=== PATIENT | male | born 1955 | race Caucasian/White ===

== ENCOUNTER 2017-10-23 08:54 | Emergency (ER) | payer SELFPAY ==
[~2017-10-23] VITALS: Ht 152.4 cm; Wt 59.1 kg
[2017-10-23 08:56] VITALS: BP 128/79
== END 2017-10-23 10:49 | disposition home or self-care (01) ==
LOC: ED 10:43
DX: R45.1 Restlessness and agitation (principal); J45.909 Unspecified asthma, uncomplicated; Z00.00 Encounter for general adult medical examination without abnormal findings; Z72.89 Other problems related to lifestyle; Z91.14 Patient's other noncompliance with medication regimen; Z60.9 Problem related to social environment, unspecified; Z59.0 Homelessness
CPT/HCPCS: 99283

== ENCOUNTER 2017-12-12 18:03 | Emergency (ER) | payer MEDICAID, MEDICARE, OTHER ==
[~2017-12-12] VITALS: Ht 152.4 cm; Wt 62.2 kg
[2017-12-12 18:08] VITALS: BP 131/74
[2017-12-12] MEDS ORDERED: ACETAMINOPHEN 325 MG TABLET ONE (18:56)
[2017-12-12] MEDS ORDERED: ACETAMINOPHEN 325 MG TABLET PO ONE (19:00)
[2017-12-12] MEDS ORDERED: ACETAMINOPHEN 500 MG TABLET PO ONE (19:00)
== END 2017-12-12 19:06 | disposition home or self-care (01) ==
LOC: ED 19:01
DX: M54.5 Low back pain (principal); G89.29 Other chronic pain; J45.909 Unspecified asthma, uncomplicated; Z72.9 Problem related to lifestyle, unspecified
CPT/HCPCS: 99283

== ENCOUNTER 2018-01-07 05:05 | Emergency (ER) | payer MEDICAID ==
[~2018-01-07] VITALS: Ht 157.5 cm; Wt 62.0 kg
[2018-01-07] MEDS ORDERED: KETOROLAC 30 MG/1 ML IM ONE (05:30)
[2018-01-07] MEDS ORDERED: KETOROLAC 30 MG/1 ML ONE (05:42)
[2018-01-07 08:00] VITALS: BP 125/70
== END 2018-01-07 08:16 | disposition home or self-care (01) ==
LOC: ED 05:49
DX: S30.0XXA Contusion of lower back and pelvis, initial encounter (principal); G89.29 Other chronic pain; M51.16 Intervertebral disc disorders with radiculopathy, lumbar region; J45.909 Unspecified asthma, uncomplicated; W22.8XXA Striking against or struck by other objects, initial encounter; Y93.89 Activity, other specified; Y92.89 Other specified places as the place of occurrence of the external cause; Y99.8 Other external cause status
CPT/HCPCS: 72110; 73502; 96372; 99284; J1885

== ENCOUNTER 2018-01-23 04:57 | Emergency (ER) | payer MEDICAID ==
[~2018-01-23] VITALS: Ht 170.2 cm; Wt 60.9 kg
[2018-01-23 05:00] VITALS: BP 117/73
[2018-01-23] MEDS ORDERED: METHOCARBAMOL 750 MG TABLET ONE (05:16)
[2018-01-23] MEDS ORDERED: KETOROLAC 30 MG/1 ML ONE (05:16)
[2018-01-23] MEDS ORDERED: KETOROLAC 30 MG/1 ML IM ONE (05:30)
[2018-01-23] MEDS ORDERED: METHOCARBAMOL 750 MG TABLET PO ONE (05:30)
== END 2018-01-23 05:26 | disposition home or self-care (01) ==
LOC: ED 05:20
DX: S39.012A Strain of muscle, fascia and tendon of lower back, initial encounter (principal); F17.200 Nicotine dependence, unspecified, uncomplicated; X58.XXXA Exposure to other specified factors, initial encounter; Y93.89 Activity, other specified; Y99.8 Other external cause status; Y92.89 Other specified places as the place of occurrence of the external cause
CPT/HCPCS: 96372; 99283; J1885

== ENCOUNTER 2018-02-25 22:53 | Emergency (ER) | payer MEDICAID ==
[~2018-02-25] VITALS: Ht 165.1 cm; Wt 63.1 kg
[2018-02-25 22:55] VITALS: BP 119/72
== END 2018-02-26 01:06 | disposition home or self-care (01) ==
LOC: ED 23:27
DX: S20.211A Contusion of right front wall of thorax, initial encounter (principal); J45.20 Mild intermittent asthma, uncomplicated; Z86.73 Personal history of transient ischemic attack (TIA), and cerebral infarction without residual deficits; X58.XXXA Exposure to other specified factors, initial encounter; Y93.89 Activity, other specified; Y99.8 Other external cause status; Y92.89 Other specified places as the place of occurrence of the external cause
CPT/HCPCS: 99284

== ENCOUNTER 2018-03-05 21:23 | Emergency (ER) | payer MEDICAID ==
[~2018-03-05] VITALS: Ht 162.6 cm; Wt 63.1 kg
[2018-03-05] MEDS ORDERED: IBUPROFEN 200 MG TABLET ONE (23:23)
[2018-03-05] MEDS ORDERED: IBUPROFEN 200 MG TABLET PO ONE (23:30)
[2018-03-06 02:03] VITALS: BP 100/52
== END 2018-03-06 02:05 | disposition home or self-care (01) ==
LOC: ED 03-06 01:59
DX: S16.1XXA Strain of muscle, fascia and tendon at neck level, initial encounter (principal); S39.012A Strain of muscle, fascia and tendon of lower back, initial encounter; J45.909 Unspecified asthma, uncomplicated; Z72.9 Problem related to lifestyle, unspecified; Z86.73 Personal history of transient ischemic attack (TIA), and cerebral infarction without residual deficits; Y04.8XXA Assault by other bodily force, initial encounter; Y93.89 Activity, other specified; Y99.8 Other external cause status; Y92.89 Other specified places as the place of occurrence of the external cause
CPT/HCPCS: 72020; 72050; 72072; 72110; 99284

== ENCOUNTER 2018-04-11 14:38 | Emergency (ER) | payer MEDICAID ==
[~2018-04-11] VITALS: Ht 170.2 cm; Wt 64.0 kg
[2018-04-11 15:04] VITALS: BP 118/69
== END 2018-04-11 16:23 | disposition home or self-care (01) ==
LOC: ED 15:07
DX: J45.30 Mild persistent asthma, uncomplicated (principal); F10.120 Alcohol abuse with intoxication, uncomplicated
CPT/HCPCS: 71046; 99284

== ENCOUNTER 2018-04-25 19:15 | Emergency (ER) | payer MEDICAID, MEDICARE, OTHER ==
[~2018-04-25] VITALS: Ht 167.6 cm; Wt 68.0 kg
[2018-04-25 19:18] VITALS: BP 125/71
[2018-04-25] MEDS ORDERED: PLEASE ENTER HEIGHT AND WEIGHT MC SCH (19:30)
[2018-04-25] MEDS ORDERED: PLEASE ENTER ALLERGIES MC SCH (19:30)
[2018-04-25] MEDS ORDERED: ACETAMINOPHEN 325 MG TABLET PO ONE (19:30)
== END 2018-04-25 20:29 | disposition home or self-care (01) ==
LOC: EDBD → MERGE 19:15 → ED 20:00
DX: S00.432A Contusion of left ear, initial encounter (principal); I25.2 Old myocardial infarction; X58.XXXA Exposure to other specified factors, initial encounter; Y93.89 Activity, other specified; Y92.59 Other trade areas as the place of occurrence of the external cause; Y99.8 Other external cause status
CPT/HCPCS: 70450; 99284

== ENCOUNTER 2018-04-25 19:23 | Emergency (ER) | payer MEDICAID, OTHER ==
[2018-04-25] MEDS ORDERED: ACETAMINOPHEN 325 MG TABLET ONE (19:49)
== END 2018-04-25 20:29 | disposition left against medical advice (07) ==
LOC: ED 20:00
DX: M25.562 Pain in left knee (principal); Z53.21 Procedure and treatment not carried out due to patient leaving prior to being seen by health care provider

== ENCOUNTER 2018-07-02 12:06 | Emergency (ER) | payer MEDICAID ==
[~2018-07-02] VITALS: Ht 162.6 cm; Wt 59.0 kg
[2018-07-02 12:39] LABS: BASOPHILS # (AUTO) 0.02 x10^3/uL (0-0.1); BASOPHILS % (AUTO) 0 % (0-1); EOSINOPHILS # (AUTO) 0.02 x10^3/uL (0-0.4); EOSINOPHILS % (AUTO) 0 % (1-7); LYMPHOCYTES # (AUTO) 0.84 x10^3/uL (1-3.4); LYMPHOCYTES % (AUTO) 7 % (22-44); MD NO; MEAN CORPUSCULAR HEMOGLOBIN 31.3 pg (27.5-34.5); MEAN CORPUSCULAR VOLUME 91.9 fL (81-97); MEAN PLATELET VOLUME 7.8 fL (7.4-10.4); MONOCYTES # (AUTO) 0.46 x10^3/uL (0.2-0.8); MONOCYTES % (AUTO) 4 % (2-9); NEUTROPHILS # (AUTO) 10.94 x10^3/uL (1.8-6.8); NEUTROPHILS % (AUTO) 89 % (42-75); PLATELET COUNT 250 x10^3/uL (130-400); RED BLOOD COUNT 3.72 x10^6/uL (4.38-5.82); RED CELL DISTRIBUTION WIDTH 14.5 % (9.4-14.8)
[2018-07-02 12:48] LABS: ANION GAP 9 mmol/L (5-15); CALCIUM 8.6 mg/dL (8.5-10.1); CHLORIDE 108 mmol/L (98-107)
[2018-07-02 12:50] LABS: ALANINE AMINOTRANSFERASE 47 U/L (12-78); ALKALINE PHOSPHATASE 73 U/L (45-117); BILIRUBIN,TOTAL 0.9 mg/dL (0.2-1.0); CREATININE 0.93 mg/dL (0.7-1.3)
[2018-07-02 13:42] VITALS: BP 107/60
--- NOTE | 2018-07-02 15:32 | NUR ---
PT AMBULATED TO BATHROOM WITHOUT ASSIST AND TOELRATED WELL. NO ACUTE S/ SOF DISTRESS. PT VERBALIZES UNDERSTANDING OF POC. TO BE DC
== END 2018-07-02 16:03 | disposition home or self-care (01) ==
LOC: ED 15:44
DX: F41.9 Anxiety disorder, unspecified (principal); F15.10 Other stimulant abuse, uncomplicated; I25.2 Old myocardial infarction; J45.909 Unspecified asthma, uncomplicated
CPT/HCPCS: 36415; 80053; 85025; 93005; 99284

== ENCOUNTER 2018-07-18 04:55 | Inpatient (IN) | payer MEDICAID, OTHER ==
[~2018-07-18] VITALS: Ht 167.6 cm; Wt 51.0 kg
[2018-07-18] MEDS ORDERED: ALBUTEROL/IPRATROPIUM 2.5MG/0.5MG, 3 ML ONE (05:16)
--- NOTE | 2018-07-18 05:20 | NUR ---
BIB [facility] FROM [facility] WITH C/O PRODUCTIVE COUGH X 3 DAYS, PER [facility] PT REFUSED ALL CARE, SPO2 86% R/A, AGREED TO WEAR 2L O2 PER N/C [id number]%, PER [facility] PT INITALLY AMBULATED TO AMBULANCE THEN STATED HE WAS UNABLE TO AMBULATE WHEN APPROACHING AMBULANCE. PROVIDED PT WITH GOWN, MONITORS APPLIED, SIDERAILS UP X2, CALL LIGHT WITHIN REACH.
--- NOTE | 2018-07-18 05:21 | NUR ---
RT AT BEDSIDE FOR T/X
[2018-07-18] MEDS ORDERED: ALBUTEROL/IPRATROPIUM 2.5MG/0.5MG, 3 ML NPPB ONE (05:30)
[2018-07-18] MEDS ORDERED: SODIUM CHLORIDE FLUSH 10ML SYR IVF ONE (05:30)
[2018-07-18] MEDS ORDERED: PIPERACILLIN/TAZO/PMX 3.375GM 50 ML IV ONE (06:00)
[2018-07-18 06:05] LABS: MEAN CORPUSCULAR HEMOGLOBIN 29.3 pg (27.5-34.5); MEAN CORPUSCULAR HGB CONC 32.3 g/dL (33.2-36.2); MEAN CORPUSCULAR VOLUME 90.9 fL (81-97); MEAN PLATELET VOLUME 7.5 fL (7.4-10.4); PLATELET COUNT 508 x10^3/uL (130-400); RED BLOOD COUNT 3.48 x10^6/uL (4.38-5.82); RED CELL DISTRIBUTION WIDTH 15.4 % (9.4-14.8)
[2018-07-18] MEDS ORDERED: PIPERACILLIN/TAZO/PMX 3.375GM 50 ML ONE (06:06)
--- NOTE | 2018-07-18 06:12 | NUR ---
IV SITE STARTED, BLOOD C/X X2 DRAWN, IV ABX INFUSING.
[2018-07-18 06:19] LABS: ALBUMIN 1.6 g/dL (3.4-5.0); ANION GAP 7 mmol/L (5-15); BASOPHILS # (AUTO) 0.01 x10^3/uL (0-0.1); BASOPHILS % (AUTO) 0 % (0-1); CALCIUM 9.2 mg/dL (8.5-10.1); CHLORIDE 100 mmol/L (98-107); CREATININE 0.87 mg/dL (0.7-1.3); EOSINOPHILS % (AUTO) 0 % (1-7); LYMPHOCYTES # (AUTO) 1.01 x10^3/uL (1-3.4); LYMPHOCYTES % (AUTO) 8 % (22-44); MD SCAN; MONOCYTES # (AUTO) 0.38 x10^3/uL (0.2-0.8); MONOCYTES % (AUTO) 3 % (2-9); NEUTROPHILS # (AUTO) 11.38 x10^3/uL (1.8-6.8); NEUTROPHILS % (AUTO) 89 % (42-75)
[2018-07-18 06:22] LABS: ALANINE AMINOTRANSFERASE 23 U/L (12-78); ALKALINE PHOSPHATASE 90 U/L (45-117); BILIRUBIN,TOTAL 0.7 mg/dL (0.2-1.0); TOTAL PROTEIN 6.4 g/dL (6.4-8.2); TROPONIN I < 0.015 ng/mL (0.000-0.045)
[2018-07-18 06:30] LABS: RAPID INFLUENZA A Negative (Negative); RAPID INFLUENZA B Negative (Negative)
[2018-07-18] MEDS ORDERED: SODIUM CHLORIDE 0.9% 1,000ML IVBOLUS ONE ×2 (06:30→08:00)
[2018-07-18] MEDS ORDERED: OMNIPAQUE 350 MG/ML, 75ML BOTTLE ONE (06:40)
--- NOTE | 2018-07-18 07:09 | NUR ---
REPORT GIVEN TO EVIN ALBERTO
--- NOTE | 2018-07-18 07:12 | NUR ---
Recieved bedside report from EVIN Mendez. All questions answered. Assuming care of pt. Pt resting on gurney connected to all monitors. All safety measures in place. Pt has unlabored respirations equal bilaterally. Skin is pink, warm, and dry. Waiting for CT to take imaging.
[2018-07-18] MEDS ORDERED: VANCOMYCIN PER PHARMACY MC PRN ×2 (07:30→09:00)
[2018-07-18] MEDS ORDERED: VANCOMYCIN 1,400 MG in SODIUM CHLORIDE 0.9% 250 ML IV ONE (07:30)
[2018-07-18] MEDS ORDERED: PHARMACOKINETIC CONSULTATION MC ONE ×2 (07:30→11:30)
--- NOTE | 2018-07-18 08:15 | NUR ---
patient o2 dropped to 83%, patient o2 increased to 4 L NC. Patient O2 increased to 93%. Patient has no distress but has periods of low saturation - potentially apneic periods
--- NOTE | 2018-07-18 08:22 | NUR ---
Float RN: Patient oxygen placed in mouth to help with drops in saturation. Primary RN notified
[2018-07-18] MEDS ORDERED: ONDANSETRON ODT 4 MG PO PRN (08:30)
--- NOTE | 2018-07-18 08:41 | NUR ---
Pt resting on gurney connected to all monitors. IV medications infusing per EMAR. NADN. No needs expressed at this time. All safety measures in place. Call light within reach. Pt aware of NPO status and states understanding.
[2018-07-18 09:44] LABS: HCT (SEDRATE) 31.7 % (39.2-51.8)
[2018-07-18] MEDS: PIPERACILLIN/TAZO/PMX 3.375GM 50 ML IV SCH ×3 (10:15→21:36)
[2018-07-18] MEDS ORDERED: FAMOTIDINE 20 MG TABLET ONE (10:16)
[2018-07-18] MEDS ORDERED: HEPARIN 5,000 UNITS/ML, 1ML ONE (10:16)
[2018-07-18] MEDS: HEPARIN 5,000 UNITS/ML, 1ML SQ SCH ×2 (10:19→18:10)
[2018-07-18] MEDS: FAMOTIDINE 20 MG TABLET PO SCH ×2 (10:19→21:36)
[2018-07-18] MEDS: SODIUM CHLORIDE 0.9% 1,000 ML IV SCH (10:20)
--- NOTE | 2018-07-18 10:30 | NUR ---
BS REPORT FROM DOLLY CLEARY, ASSUME CARE OF PT AT THIS TIME. FIRST CONTACT WITH PT, PT SLEEPING SOUNDLY, AROUSABLE TO VOICE. 0900 SCHEDULED MEDS GIVEN, PT COUGHING WITH PO-STATES HE ALWAYS DOES "WHEN I DRINK ANYTHING". PT ORIENTED BUT DROWSY, STATES HE WANTS HIS CLOTHES AND TO GET "SOMEONE WHO KNOWS THEIR ASS FROM THEIR HEAD". PT ASKED IF HE WAS UPSET ABOUT ANYTHING AND HE STATES "NO, I LOVE YOU". CALL FOR REPORT AT THIS TIME. REPORT GIVEN TO CHRISTIANO CLEARY, PT READY FOR TRANSPORT.
[2018-07-18] MEDS ORDERED: MIDAZOLAM 1 MG/ML, 2ML ONE (11:10)
[2018-07-18] MEDS ORDERED: FENTANYL PF 100 MCG/2ML ONE ×2 (11:10→12:15)
[2018-07-18] MEDS ORDERED: ACETAMINOPHEN 325 MG TABLET PO PRN (11:30)
[2018-07-18] MEDS ORDERED: MEPERIDINE/PF 25MG/0.5ML IVPush PRN (11:30)
[2018-07-18] MEDS ORDERED: PROPOFOL 10 MG/ML, 20ML ONE (11:30)
[2018-07-18] MEDS ORDERED: hydrALAzine 20 MG/ML, 1ML IV PRN (11:30)
[2018-07-18] MEDS ORDERED: OXYcodone 5 MG/5 ML ORAL.SOL UDC PO PRN (11:30)
[2018-07-18] MEDS ORDERED: ONDANSETRON 2MG/ML, 2ML IV PRN (11:30)
[2018-07-18] MEDS ORDERED: LABETALOL 5MG/ML, 20ML IV PRN (11:30)
[2018-07-18] MEDS ORDERED: HALOPERIDOL 5 MG/ML IV PRN (11:30)
[2018-07-18] MEDS ORDERED: MORPHINE SULFATE 4 MG/ML, 1ML IVPush PRN (11:30)
[2018-07-18] MEDS ORDERED: FENTANYL PF 100 MCG/2ML IV PRN (11:30)
[2018-07-18] MEDS ORDERED: PHARMACOKINETIC MONITORING MC PRN (11:30)
[2018-07-18] MEDS ORDERED: SUCCINYLCHOLINE 20 MG/ML, 10ML ONE (11:30)
[2018-07-18] MEDS ORDERED: METOCLOPRAMIDE 5 MG/ML, 2ML IV PRN (11:30)
[2018-07-18] MEDS ORDERED: HYDROmorphone 2 MG/ML, 1ML IVPush PRN (11:30)
[2018-07-18] MEDS ORDERED: LORazepam 2 MG/ML, 1ML IVPush PRN (11:30)
[2018-07-18] MEDS ORDERED: BUPIVACAINE/PF-EPI 0.5% 1:200K ONE (11:51)
[2018-07-18] MEDS ORDERED: BUPIVACAINE/PF-EPI 0.5% 1:200K INFIL ONE (12:00)
[2018-07-18] MEDS ORDERED: HYDROmorphone 2 MG/ML, 1ML ONE (12:15)
[2018-07-18] MEDS ORDERED: OXYcodone 5 MG/5 ML ORAL.SOL UDC ONE (12:16)
[2018-07-18] MEDS ORDERED: MORPHINE SULFATE 4 MG/ML, 1ML ONE (12:54)
[2018-07-18 13:47] VITALS: BP 93/54
[2018-07-18] MEDS ORDERED: ALBUTEROL SULFATE 2.5 MG/3 ML NPPB PRN (14:00)
[2018-07-18 20:00] VITALS: BP 94/58
[2018-07-18] MEDS: ACETAMINOPHEN 325 MG TABLET PO PRN (22:54)
[2018-07-19] MEDS: VANCOMYCIN 1,400 MG in SODIUM CHLORIDE 0.9% 250 ML IV SCH ×2 (01:35→20:28)
[2018-07-19] MEDS: HEPARIN 5,000 UNITS/ML, 1ML SQ SCH ×3 (01:35→17:32)
[2018-07-19 02:00] VITALS: BP 97/58
[2018-07-19] MEDS: PIPERACILLIN/TAZO/PMX 3.375GM 50 ML IV SCH ×3 (03:12→16:03)
[2018-07-19 05:12] LABS: BASOPHILS # (AUTO) 0.04 x10^3/uL (0-0.1); BASOPHILS % (AUTO) 0 % (0-1); EOSINOPHILS % (AUTO) 0 % (1-7); LYMPHOCYTES # (AUTO) 1.56 x10^3/uL (1-3.4); LYMPHOCYTES % (AUTO) 12 % (22-44); MD NO; MEAN CORPUSCULAR HEMOGLOBIN 30.2 pg (27.5-34.5); MEAN CORPUSCULAR VOLUME 91.7 fL (81-97); MEAN PLATELET VOLUME 7.7 fL (7.4-10.4); MONOCYTES # (AUTO) 0.76 x10^3/uL (0.2-0.8); MONOCYTES % (AUTO) 6 % (2-9); NEUTROPHILS # (AUTO) 10.73 x10^3/uL (1.8-6.8); NEUTROPHILS % (AUTO) 82 % (42-75); PLATELET COUNT 333 x10^3/uL (130-400); RED BLOOD COUNT 3.11 x10^6/uL (4.38-5.82); RED CELL DISTRIBUTION WIDTH 15.3 % (9.4-14.8)
[2018-07-19] MEDS: SODIUM CHLORIDE 0.9% 1,000 ML IV SCH (05:29)
[2018-07-19 07:19] VITALS: BP 103/54
[2018-07-19 09:25] LABS: ALANINE AMINOTRANSFERASE 18 U/L (12-78); ALBUMIN 1.3 g/dL (3.4-5.0); ANION GAP 3 mmol/L (5-15); CALCIUM 8.7 mg/dL (8.5-10.1); CHLORIDE 109 mmol/L (98-107); CREATININE 0.77 mg/dL (0.7-1.3)
[2018-07-19 09:29] LABS: ALKALINE PHOSPHATASE 61 U/L (45-117); BILIRUBIN,TOTAL 0.5 mg/dL (0.2-1.0); TOTAL PROTEIN 5.3 g/dL (6.4-8.2)
[2018-07-19] MEDS: FAMOTIDINE 20 MG TABLET PO SCH ×2 (09:38→20:27)
[2018-07-19 13:11] VITALS: BP 104/62
[2018-07-19 20:00] VITALS: BP 127/73
[2018-07-20] MEDS: PIPERACILLIN/TAZO/PMX 3.375GM 50 ML IV SCH ×4 (00:46→18:27)
[2018-07-20 02:00] VITALS: BP 128/78
[2018-07-20] MEDS: HEPARIN 5,000 UNITS/ML, 1ML SQ SCH ×3 (03:16→18:27)
[2018-07-20 05:57] LABS: BASOPHILS # (AUTO) 0.07 x10^3/uL (0-0.1); BASOPHILS % (AUTO) 1 % (0-1); EOSINOPHILS # (AUTO) 0.01 x10^3/uL (0-0.4); EOSINOPHILS % (AUTO) 0 % (1-7); LYMPHOCYTES # (AUTO) 1.67 x10^3/uL (1-3.4); LYMPHOCYTES % (AUTO) 13 % (22-44); MD NO; MEAN CORPUSCULAR HEMOGLOBIN 30.4 pg (27.5-34.5); MEAN CORPUSCULAR HGB CONC 33.4 g/dL (33.2-36.2); MEAN CORPUSCULAR VOLUME 90.9 fL (81-97); MEAN PLATELET VOLUME 7.4 fL (7.4-10.4); MONOCYTES # (AUTO) 1.08 x10^3/uL (0.2-0.8); MONOCYTES % (AUTO) 9 % (2-9); NEUTROPHILS % (AUTO) 78 % (42-75); PLATELET COUNT 404 x10^3/uL (130-400); RED BLOOD COUNT 3.26 x10^6/uL (4.38-5.82); RED CELL DISTRIBUTION WIDTH 15.7 % (9.4-14.8)
[2018-07-20 06:04] LABS: ALBUMIN 1.2 g/dL (3.4-5.0); ANION GAP 6 mmol/L (5-15); CALCIUM 7.8 mg/dL (8.5-10.1); CHLORIDE 107 mmol/L (98-107)
[2018-07-20 06:07] LABS: ALANINE AMINOTRANSFERASE 15 U/L (12-78); ALKALINE PHOSPHATASE 55 U/L (45-117); BILIRUBIN,TOTAL 0.3 mg/dL (0.2-1.0); TOTAL PROTEIN 4.9 g/dL (6.4-8.2)
[2018-07-20 06:45] VITALS: BP 106/65
[2018-07-20] MEDS: FAMOTIDINE 20 MG TABLET PO SCH ×2 (10:08→20:16)
[2018-07-20] MEDS: SODIUM CHLORIDE 0.9% 1,000 ML IV SCH (10:08)
[2018-07-20] MEDS: ACETAMINOPHEN 325 MG TABLET PO PRN (10:08)
[2018-07-20 12:20] VITALS: BP 95/43
[2018-07-20] MEDS: VANCOMYCIN 1,400 MG in SODIUM CHLORIDE 0.9% 250 ML IV SCH (13:32)
[2018-07-20 20:00] VITALS: BP 117/68
[2018-07-21] MEDS: PIPERACILLIN/TAZO/PMX 3.375GM 50 ML IV SCH ×2 (00:14→05:58)
[2018-07-21] MEDS ORDERED: MORPHINE SULFATE 4 MG/ML, 1ML IVPush ONE (01:00)
[2018-07-21 01:33] VITALS: BP 122/68
[2018-07-21] MEDS: HEPARIN 5,000 UNITS/ML, 1ML SQ SCH ×3 (02:15→17:42)
[2018-07-21 07:47] VITALS: BP 112/67
[2018-07-21] MEDS: SODIUM CHLORIDE 0.9% 1,000 ML IV SCH ×2 (07:59→23:13)
[2018-07-21] MEDS: VANCOMYCIN 1,400 MG in SODIUM CHLORIDE 0.9% 250 ML IV SCH (07:59)
[2018-07-21 09:27] LABS: BASOPHILS # (AUTO) 0.04 x10^3/uL (0-0.1); BASOPHILS % (AUTO) 0 % (0-1); EOSINOPHILS # (AUTO) 0.01 x10^3/uL (0-0.4); EOSINOPHILS % (AUTO) 0 % (1-7); LYMPHOCYTES # (AUTO) 1.76 x10^3/uL (1-3.4); LYMPHOCYTES % (AUTO) 14 % (22-44); MD NO; MEAN CORPUSCULAR HEMOGLOBIN 29.6 pg (27.5-34.5); MEAN CORPUSCULAR HGB CONC 32.9 g/dL (33.2-36.2); MEAN CORPUSCULAR VOLUME 90.1 fL (81-97); MEAN PLATELET VOLUME 7.7 fL (7.4-10.4); MONOCYTES # (AUTO) 0.83 x10^3/uL (0.2-0.8); MONOCYTES % (AUTO) 6 % (2-9); NEUTROPHILS # (AUTO) 10.25 x10^3/uL (1.8-6.8); NEUTROPHILS % (AUTO) 80 % (42-75); PLATELET COUNT 425 x10^3/uL (130-400); RED BLOOD COUNT 3.67 x10^6/uL (4.38-5.82); RED CELL DISTRIBUTION WIDTH 15.3 % (9.4-14.8)
[2018-07-21 09:39] LABS: ALANINE AMINOTRANSFERASE 15 U/L (12-78); ALBUMIN 1.2 g/dL (3.4-5.0); ANION GAP 6 mmol/L (5-15); CALCIUM 8.2 mg/dL (8.5-10.1); CHLORIDE 103 mmol/L (98-107); CREATININE 0.69 mg/dL (0.7-1.3)
[2018-07-21 09:44] LABS: ALKALINE PHOSPHATASE 66 U/L (45-117); BILIRUBIN,TOTAL 0.4 mg/dL (0.2-1.0); TOTAL PROTEIN 5.5 g/dL (6.4-8.2)
[2018-07-21] MEDS ORDERED: PNEUMOC 13-VALENT VACC, 0.5 ML IM-VACC ONE (10:30)
[2018-07-21] MEDS: CEFTRIAXONE PMX 2GM/50ML 50 ML IV SCH (10:34)
[2018-07-21] MEDS: FAMOTIDINE 20 MG TABLET PO SCH ×2 (10:35→20:44)
[2018-07-21 13:27] VITALS: BP 116/73
[2018-07-21] MEDS ORDERED: morphine SULFATE 10 MG/ML, 1ML IVPush ONE (13:30)
[2018-07-21 20:00] VITALS: BP 118/70
[2018-07-22] MEDS: HEPARIN 5,000 UNITS/ML, 1ML SQ SCH ×3 (01:48→18:00)
[2018-07-22 02:00] VITALS: BP 114/75
[2018-07-22] MEDS ORDERED: VANCOMYCIN 1,300 MG in SODIUM CHLORIDE 0.9% 250 ML IV SCH (06:00)
[2018-07-22 07:42] VITALS: BP 123/73
[2018-07-22 08:24] LABS: MEAN CORPUSCULAR HEMOGLOBIN 29.5 pg (27.5-34.5); MEAN CORPUSCULAR HGB CONC 32.5 g/dL (33.2-36.2); MEAN PLATELET VOLUME 7.8 fL (7.4-10.4); PLATELET COUNT 437 x10^3/uL (130-400); RED CELL DISTRIBUTION WIDTH 15.5 % (9.4-14.8)
[2018-07-22 08:41] LABS: BASOPHILS # (AUTO) 0.04 x10^3/uL (0-0.1); BASOPHILS % (AUTO) 0 % (0-1); EOSINOPHILS # (AUTO) 0.02 x10^3/uL (0-0.4); EOSINOPHILS % (AUTO) 0 % (1-7); LYMPHOCYTES # (AUTO) 1.58 x10^3/uL (1-3.4); LYMPHOCYTES % (AUTO) 14 % (22-44); MD SCAN; MONOCYTES # (AUTO) 0.12 x10^3/uL (0.2-0.8); MONOCYTES % (AUTO) 1 % (2-9); NEUTROPHILS # (AUTO) 9.84 x10^3/uL (1.8-6.8); NEUTROPHILS % (AUTO) 85 % (42-75)
[2018-07-22] MEDS: FAMOTIDINE 20 MG TABLET PO SCH ×2 (08:46→22:01)
[2018-07-22] MEDS: CEFTRIAXONE PMX 2GM/50ML 50 ML IV SCH (10:05)
[2018-07-22] MEDS: SODIUM CHLORIDE 0.9% 1,000 ML IV SCH (12:33)
[2018-07-22 13:06] VITALS: BP 129/78
[2018-07-22 20:00] VITALS: BP 123/70
[2018-07-23] MEDS: SODIUM CHLORIDE 0.9% 1,000 ML IV SCH ×2 (01:28→17:34)
[2018-07-23] MEDS: HEPARIN 5,000 UNITS/ML, 1ML SQ SCH ×3 (01:32→17:34)
[2018-07-23] MEDS: ACETAMINOPHEN 325 MG TABLET PO PRN ×2 (01:36→13:31)
[2018-07-23 02:00] VITALS: BP 123/71
[2018-07-23 05:31] VITALS: BP 120/66
[2018-07-23] MEDS: FAMOTIDINE 20 MG TABLET PO SCH ×2 (09:18→21:05)
[2018-07-23] MEDS: CEFTRIAXONE PMX 2GM/50ML 50 ML IV SCH (11:29)
[2018-07-23] MEDS ORDERED: POTASSIUM CHLORIDE 20 MEQ TAB.ER.PRT PO ONE ×4 (13:00→15:45)
[2018-07-23 14:13] VITALS: BP 120/87
[2018-07-23 14:35] LABS: QUANTIFERON TB Ag1-NIL 0 (0.000-0.000)
[2018-07-23] MEDS ORDERED: VISIPAQUE 270 MG/ML, 50ML BOTTLE ONE (16:22)
[2018-07-23 19:45] VITALS: BP 132/76
[2018-07-24 00:33] VITALS: BP 122/72
[2018-07-24] MEDS: HEPARIN 5,000 UNITS/ML, 1ML SQ SCH ×3 (02:25→18:00)
[2018-07-24] MEDS: SODIUM CHLORIDE 0.9% 1,000 ML IV SCH (03:52)
[2018-07-24 06:29] LABS: BASOPHILS # (AUTO) 0.02 x10^3/uL (0-0.1); BASOPHILS % (AUTO) 0 % (0-1); EOSINOPHILS # (AUTO) 0.04 x10^3/uL (0-0.4); EOSINOPHILS % (AUTO) 0 % (1-7); LYMPHOCYTES % (AUTO) 14 % (22-44); MD NO; MEAN CORPUSCULAR HEMOGLOBIN 29.7 pg (27.5-34.5); MEAN CORPUSCULAR VOLUME 89.9 fL (81-97); MEAN PLATELET VOLUME 7.5 fL (7.4-10.4); MONOCYTES # (AUTO) 0.96 x10^3/uL (0.2-0.8); MONOCYTES % (AUTO) 8 % (2-9); NEUTROPHILS # (AUTO) 9.18 x10^3/uL (1.8-6.8); NEUTROPHILS % (AUTO) 77 % (42-75); PLATELET COUNT 470 x10^3/uL (130-400); RED BLOOD COUNT 3.28 x10^6/uL (4.38-5.82); RED CELL DISTRIBUTION WIDTH 15.4 % (9.4-14.8)
[2018-07-24 06:31] LABS: ALBUMIN 1.2 g/dL (3.4-5.0); ANION GAP 7 mmol/L (5-15); CALCIUM 8.1 mg/dL (8.5-10.1); CHLORIDE 105 mmol/L (98-107)
[2018-07-24 06:36] LABS: ALANINE AMINOTRANSFERASE 14 U/L (12-78); ALKALINE PHOSPHATASE 63 U/L (45-117); BILIRUBIN,TOTAL 0.3 mg/dL (0.2-1.0); CREATININE 0.54 mg/dL (0.7-1.3); TOTAL PROTEIN 5.5 g/dL (6.4-8.2)
[2018-07-24 06:45] VITALS: BP 122/74
[2018-07-24] MEDS: FAMOTIDINE 20 MG TABLET PO SCH ×2 (08:37→21:27)
[2018-07-24] MEDS ORDERED: POTASSIUM CHLORIDE 20 MEQ TAB.ER.PRT PO ONE ×2 (09:30→11:30)
[2018-07-24] MEDS: CEFTRIAXONE PMX 2GM/50ML 50 ML IV SCH (10:59)
[2018-07-24 14:50] VITALS: BP 126/72
[2018-07-24] MEDS: ACETAMINOPHEN 325 MG TABLET PO PRN (15:23)
[2018-07-24 19:30] VITALS: BP 134/75
[2018-07-25 01:55] VITALS: BP 125/69
[2018-07-25] MEDS: HEPARIN 5,000 UNITS/ML, 1ML SQ SCH ×3 (02:02→16:48)
[2018-07-25 04:42] LABS: BASOPHILS # (AUTO) 0.05 x10^3/uL (0-0.1); BASOPHILS % (AUTO) 0 % (0-1); EOSINOPHILS # (AUTO) 0.04 x10^3/uL (0-0.4); EOSINOPHILS % (AUTO) 0 % (1-7); LYMPHOCYTES # (AUTO) 1.75 x10^3/uL (1-3.4); LYMPHOCYTES % (AUTO) 13 % (22-44); MD NO; MEAN CORPUSCULAR HEMOGLOBIN 29.5 pg (27.5-34.5); MEAN CORPUSCULAR HGB CONC 32.5 g/dL (33.2-36.2); MEAN CORPUSCULAR VOLUME 90.7 fL (81-97); MEAN PLATELET VOLUME 7.5 fL (7.4-10.4); MONOCYTES # (AUTO) 1.11 x10^3/uL (0.2-0.8); MONOCYTES % (AUTO) 8 % (2-9); NEUTROPHILS # (AUTO) 10.17 x10^3/uL (1.8-6.8); NEUTROPHILS % (AUTO) 78 % (42-75); PLATELET COUNT 460 x10^3/uL (130-400); RED BLOOD COUNT 3.09 x10^6/uL (4.38-5.82); RED CELL DISTRIBUTION WIDTH 15.4 % (9.4-14.8)
[2018-07-25 04:56] LABS: ALBUMIN 1.2 g/dL (3.4-5.0); ANION GAP 4 mmol/L (5-15); CALCIUM 7.8 mg/dL (8.5-10.1); CHLORIDE 105 mmol/L (98-107)
[2018-07-25 04:59] LABS: CREATININE 0.64 mg/dL (0.7-1.3)
[2018-07-25 08:06] VITALS: BP 129/76
[2018-07-25] MEDS: CEFTRIAXONE PMX 2GM/50ML 50 ML IV SCH (09:02)
[2018-07-25] MEDS: FAMOTIDINE 20 MG TABLET PO SCH ×2 (09:02→23:01)
[2018-07-25 13:56] VITALS: BP 133/61
[2018-07-25] MEDS: ACETAMINOPHEN 325 MG TABLET PO PRN (14:17)
[2018-07-25 18:48] VITALS: BP 115/64
[2018-07-25] MEDS: DAKIN'S SOLUTION 1/4 STRENGTH 1,000 ML IRRIG SOLN EXT SCH (23:21)
[2018-07-26 01:26] VITALS: BP 119/65
[2018-07-26] MEDS: HEPARIN 5,000 UNITS/ML, 1ML SQ SCH ×3 (02:00→17:22)
[2018-07-26 05:21] LABS: BASOPHILS # (AUTO) 0.04 x10^3/uL (0-0.1); BASOPHILS % (AUTO) 0 % (0-1); EOSINOPHILS # (AUTO) 0.02 x10^3/uL (0-0.4); EOSINOPHILS % (AUTO) 0 % (1-7); HCT (SEDRATE) 27.8 % (39.2-51.8); LYMPHOCYTES # (AUTO) 1.73 x10^3/uL (1-3.4); LYMPHOCYTES % (AUTO) 11 % (22-44); MD NO; MEAN CORPUSCULAR HEMOGLOBIN 30.3 pg (27.5-34.5); MEAN CORPUSCULAR HGB CONC 33.8 g/dL (33.2-36.2); MEAN CORPUSCULAR VOLUME 89.8 fL (81-97); MEAN PLATELET VOLUME 7.4 fL (7.4-10.4); MONOCYTES # (AUTO) 1.42 x10^3/uL (0.2-0.8); MONOCYTES % (AUTO) 9 % (2-9); NEUTROPHILS # (AUTO) 12.21 x10^3/uL (1.8-6.8); NEUTROPHILS % (AUTO) 79 % (42-75); PLATELET COUNT 453 x10^3/uL (130-400); RED CELL DISTRIBUTION WIDTH 15.8 % (9.4-14.8)
[2018-07-26 05:32] LABS: ALBUMIN 1.2 g/dL (3.4-5.0); ANION GAP 6 mmol/L (5-15); CALCIUM 7.9 mg/dL (8.5-10.1); CHLORIDE 102 mmol/L (98-107)
[2018-07-26 05:43] LABS: ALANINE AMINOTRANSFERASE 12 U/L (12-78); ALKALINE PHOSPHATASE 68 U/L (45-117); BILIRUBIN,TOTAL 0.5 mg/dL (0.2-1.0); CREATININE 0.65 mg/dL (0.7-1.3); TOTAL PROTEIN 5.7 g/dL (6.4-8.2)
[2018-07-26 07:20] VITALS: BP 116/66
[2018-07-26] MEDS: FAMOTIDINE 20 MG TABLET PO SCH ×2 (09:00→21:54)
[2018-07-26] MEDS: DAKIN'S SOLUTION 1/4 STRENGTH 1,000 ML IRRIG SOLN EXT SCH (09:00)
[2018-07-26] MEDS ORDERED: morphine SULFATE 10 MG/ML, 1ML ONE (10:21)
[2018-07-26] MEDS ORDERED: morphine SULFATE 10 MG/ML, 1ML IVPush PRN (10:30)
[2018-07-26] MEDS: CEFTRIAXONE PMX 2GM/50ML 50 ML IV SCH (11:14)
[2018-07-26 14:13] VITALS: BP 117/70
[2018-07-26 16:17] LABS: TUBERCULIN 48 HOUR READ 0 mm (< 5)
[2018-07-26] MEDS ORDERED: MIDAZOLAM 1 MG/ML, 2ML ONE (19:43)
[2018-07-26] MEDS ORDERED: PHENYLEPHRINE 10 MG/ML ONE (19:44)
[2018-07-26] MEDS ORDERED: PROPOFOL 10 MG/ML, 20ML ONE (19:44)
[2018-07-26] MEDS ORDERED: FENTANYL PF 250 MCG/5ML ONE (19:48)
[2018-07-26] MEDS ORDERED: PROMETHAZINE 25 MG SUPP PR PRN (20:30)
[2018-07-26] MEDS ORDERED: ONDANSETRON 2MG/ML, 2ML IV PRN (20:30)
[2018-07-26] MEDS ORDERED: MIDAZOLAM 1 MG/ML, 2ML IV PRN (20:30)
[2018-07-26] MEDS ORDERED: ONDANSETRON ODT 8 MG PO PRN (20:30)
[2018-07-26] MEDS ORDERED: EPHEDRINE 50 MG/ML, 1ML IVPush PRN (20:30)
[2018-07-26] MEDS ORDERED: hydrALAzine 20 MG/ML, 1ML IV PRN (20:30)
[2018-07-26] MEDS ORDERED: FENTANYL PF 100 MCG/2ML IV PRN (20:30)
[2018-07-26] MEDS ORDERED: MORPHINE SULFATE 4 MG/ML, 1ML IVPush PRN (20:30)
[2018-07-26] MEDS ORDERED: OXYcodone 5 MG/5 ML ORAL.SOL UDC PO PRN (20:30)
[2018-07-26] MEDS ORDERED: PROMETHAZINE 25 MG/ML, 1ML IV PRN (20:30)
[2018-07-26] MEDS ORDERED: METOPROLOL 1 MG/ML, 5ML IV PRN (20:30)
[2018-07-26] MEDS ORDERED: EPHEDRINE 50 MG/ML, 1ML IM PRN (20:30)
[2018-07-26] MEDS ORDERED: PROMETHAZINE 12.5 MG SUPP PR PRN (20:30)
[2018-07-26] MEDS ORDERED: DIPHENHYDRAMINE 50 MG/ML, 1ML IVPush PRN (20:30)
[2018-07-26] MEDS ORDERED: FENTANYL PF 100 MCG/2ML ONE (20:46)
[2018-07-26] MEDS ORDERED: OXYcodone 5 MG/5 ML ORAL.SOL UDC ONE (20:47)
[2018-07-26] MEDS: POTASSIUM CHLORIDE 10 MEQ in D5%-0.45% NACL 1,000 ML IV SCH (21:55)
[2018-07-27 01:06] VITALS: BP 117/70
[2018-07-27] MEDS: HEPARIN 5,000 UNITS/ML, 1ML SQ SCH ×3 (02:00→16:38)
[2018-07-27 07:57] LABS: ALBUMIN 1.2 g/dL (3.4-5.0); ANION GAP 5 mmol/L (5-15); CALCIUM 8.3 mg/dL (8.5-10.1); CHLORIDE 103 mmol/L (98-107); CREATININE 0.59 mg/dL (0.7-1.3); MEAN CORPUSCULAR HEMOGLOBIN 29.1 pg (27.5-34.5); MEAN CORPUSCULAR HGB CONC 32.2 g/dL (33.2-36.2); MEAN CORPUSCULAR VOLUME 90.3 fL (81-97); MEAN PLATELET VOLUME 7.4 fL (7.4-10.4); PLATELET COUNT 530 x10^3/uL (130-400); RED BLOOD COUNT 3.19 x10^6/uL (4.38-5.82); RED CELL DISTRIBUTION WIDTH 15.6 % (9.4-14.8)
[2018-07-27] MEDS: POTASSIUM CHLORIDE 10 MEQ in D5%-0.45% NACL 1,000 ML IV SCH ×2 (08:30→16:04)
[2018-07-27] MEDS: FAMOTIDINE 20 MG TABLET PO SCH ×2 (08:47→20:55)
[2018-07-27 08:50] LABS: BASOPHILS # (AUTO) 0.05 x10^3/uL (0-0.1); BASOPHILS % (AUTO) 0 % (0-1); EOSINOPHILS # (AUTO) 0.09 x10^3/uL (0-0.4); EOSINOPHILS % (AUTO) 1 % (1-7); LYMPHOCYTES # (AUTO) 1.54 x10^3/uL (1-3.4); LYMPHOCYTES % (AUTO) 10 % (22-44); MD SCAN; MONOCYTES # (AUTO) 1.23 x10^3/uL (0.2-0.8); MONOCYTES % (AUTO) 8 % (2-9); NEUTROPHILS # (AUTO) 12.63 x10^3/uL (1.8-6.8); NEUTROPHILS % (AUTO) 81 % (42-75)
[2018-07-27] MEDS: DAKIN'S SOLUTION 1/4 STRENGTH 1,000 ML IRRIG SOLN EXT SCH (09:00)
[2018-07-27 09:02] VITALS: BP 102/61
[2018-07-27] MEDS: CEFTRIAXONE PMX 2GM/50ML 50 ML IV SCH (09:26)
[2018-07-27] MEDS ORDERED: OMNIPAQUE 350 MG/ML, 75ML BOTTLE ONE (10:50)
[2018-07-27] MEDS ORDERED: LIDOCAINE-MPF 1%, 5ML ONE (11:44)
[2018-07-27] MEDS ORDERED: FENTANYL PF 100 MCG/2ML ONE (11:47)
[2018-07-27] MEDS ORDERED: MIDAZOLAM 1 MG/ML, 5ML ONE (11:47)
[2018-07-27] MEDS ORDERED: NALOXONE 1 MG/ML, 2ML ONE (11:47)
[2018-07-27] MEDS ORDERED: FLUMAZENIL 0.1 MG/1 ML, 5ML ONE (11:47)
[2018-07-27 14:01] VITALS: BP 84/49
[2018-07-27 19:53] VITALS: BP 109/52
[2018-07-28] MEDS: POTASSIUM CHLORIDE 10 MEQ in D5%-0.45% NACL 1,000 ML IV SCH ×2 (01:32→12:34)
[2018-07-28] MEDS: HEPARIN 5,000 UNITS/ML, 1ML SQ SCH ×4 (01:32→23:31)
[2018-07-28] MEDS ORDERED: MORPHINE SULFATE 4 MG/ML, 1ML ONE ×2 (02:37→20:44)
[2018-07-28] MEDS: morphine SULFATE 10 MG/ML, 1ML IVPush PRN ×3 (02:39→20:49)
[2018-07-28 02:54] VITALS: BP 101/63
[2018-07-28 05:26] LABS: BASOPHILS # (AUTO) 0.07 x10^3/uL (0-0.1); BASOPHILS % (AUTO) 1 % (0-1); EOSINOPHILS # (AUTO) 0.17 x10^3/uL (0-0.4); EOSINOPHILS % (AUTO) 1 % (1-7); LYMPHOCYTES # (AUTO) 1.88 x10^3/uL (1-3.4); LYMPHOCYTES % (AUTO) 14 % (22-44); MD NO; MEAN CORPUSCULAR HEMOGLOBIN 30.2 pg (27.5-34.5); MEAN CORPUSCULAR HGB CONC 33.3 g/dL (33.2-36.2); MEAN CORPUSCULAR VOLUME 90.8 fL (81-97); MEAN PLATELET VOLUME 7.1 fL (7.4-10.4); MONOCYTES # (AUTO) 1.31 x10^3/uL (0.2-0.8); MONOCYTES % (AUTO) 10 % (2-9); NEUTROPHILS # (AUTO) 9.75 x10^3/uL (1.8-6.8); NEUTROPHILS % (AUTO) 74 % (42-75); PLATELET COUNT 579 x10^3/uL (130-400); RED BLOOD COUNT 2.86 x10^6/uL (4.38-5.82); RED CELL DISTRIBUTION WIDTH 15.8 % (9.4-14.8)
[2018-07-28 05:37] LABS: ALBUMIN 1.2 g/dL (3.4-5.0); ANION GAP 4 mmol/L (5-15); CALCIUM 8.1 mg/dL (8.5-10.1); CHLORIDE 106 mmol/L (98-107); CREATININE 0.69 mg/dL (0.7-1.3)
[2018-07-28 08:00] VITALS: BP 146/74
[2018-07-28] MEDS: CEFTRIAXONE PMX 2GM/50ML 50 ML IV SCH (09:36)
[2018-07-28] MEDS: FAMOTIDINE 20 MG TABLET PO SCH ×2 (09:36→20:49)
[2018-07-28 13:49] VITALS: BP 142/69
[2018-07-28] MEDS: LURASIDONE 20 MG TABLET PO SCH (18:05)
[2018-07-28 19:58] VITALS: BP 104/58
[2018-07-29 00:53] VITALS: BP 116/88
[2018-07-29] MEDS: POTASSIUM CHLORIDE 10 MEQ in D5%-0.45% NACL 1,000 ML IV SCH ×2 (02:00→17:56)
[2018-07-29 07:52] VITALS: BP 120/86
[2018-07-29] MEDS: HEPARIN 5,000 UNITS/ML, 1ML SQ SCH ×2 (10:05→18:01)
[2018-07-29] MEDS: FAMOTIDINE 20 MG TABLET PO SCH ×2 (10:05→20:15)
[2018-07-29] MEDS: CEFTRIAXONE PMX 2GM/50ML 50 ML IV SCH (10:54)
[2018-07-29] MEDS: ACETAMINOPHEN 325 MG TABLET PO PRN (10:54)
[2018-07-29] MEDS: morphine SULFATE 10 MG/ML, 1ML IVPush PRN ×2 (11:46→11:49)
[2018-07-29 12:34] LABS: BASOPHILS # (AUTO) 0.07 x10^3/uL (0-0.1); BASOPHILS % (AUTO) 1 % (0-1); EOSINOPHILS # (AUTO) 0.11 x10^3/uL (0-0.4); EOSINOPHILS % (AUTO) 1 % (1-7); LYMPHOCYTES # (AUTO) 2.12 x10^3/uL (1-3.4); LYMPHOCYTES % (AUTO) 16 % (22-44); MD NO; MEAN CORPUSCULAR HEMOGLOBIN 30.5 pg (27.5-34.5); MEAN CORPUSCULAR HGB CONC 33.7 g/dL (33.2-36.2); MEAN CORPUSCULAR VOLUME 90.5 fL (81-97); MEAN PLATELET VOLUME 6.7 fL (7.4-10.4); MONOCYTES % (AUTO) 10 % (2-9); NEUTROPHILS # (AUTO) 9.61 x10^3/uL (1.8-6.8); NEUTROPHILS % (AUTO) 73 % (42-75); PLATELET COUNT 621 x10^3/uL (130-400); RED CELL DISTRIBUTION WIDTH 15.1 % (9.4-14.8)
[2018-07-29 12:42] VITALS: BP 108/61
[2018-07-29 12:45] LABS: ALANINE AMINOTRANSFERASE 21 U/L (12-78); ALBUMIN 1.2 g/dL (3.4-5.0); ANION GAP 4 mmol/L (5-15); CALCIUM 8.1 mg/dL (8.5-10.1); CHLORIDE 105 mmol/L (98-107)
[2018-07-29 12:47] LABS: ALKALINE PHOSPHATASE 71 U/L (45-117); BILIRUBIN,TOTAL 0.1 mg/dL (0.2-1.0); TOTAL PROTEIN 6.2 g/dL (6.4-8.2)
[2018-07-29] MEDS: LURASIDONE 20 MG TABLET PO SCH (18:01)
[2018-07-29 19:28] VITALS: BP 124/69
[2018-07-30] MEDS: HEPARIN 5,000 UNITS/ML, 1ML SQ SCH ×3 (01:37→17:31)
[2018-07-30 02:03] VITALS: BP 107/65
[2018-07-30 05:04] LABS: CHLORIDE 102 mmol/L (98-107)
[2018-07-30 05:07] LABS: BASOPHILS # (AUTO) 0.18 x10^3/uL (0-0.1); BASOPHILS % (AUTO) 2 % (0-1); EOSINOPHILS % (AUTO) 1 % (1-7); LYMPHOCYTES # (AUTO) 1.89 x10^3/uL (1-3.4); LYMPHOCYTES % (AUTO) 16 % (22-44); MD NO; MEAN CORPUSCULAR HEMOGLOBIN 28.9 pg (27.5-34.5); MEAN CORPUSCULAR HGB CONC 32.2 g/dL (33.2-36.2); MEAN CORPUSCULAR VOLUME 89.6 fL (81-97); MEAN PLATELET VOLUME 7.3 fL (7.4-10.4); MONOCYTES # (AUTO) 1.07 x10^3/uL (0.2-0.8); MONOCYTES % (AUTO) 9 % (2-9); NEUTROPHILS # (AUTO) 8.26 x10^3/uL (1.8-6.8); NEUTROPHILS % (AUTO) 72 % (42-75); PLATELET COUNT 555 x10^3/uL (130-400); RED CELL DISTRIBUTION WIDTH 15.1 % (9.4-14.8)
[2018-07-30 05:08] LABS: ALANINE AMINOTRANSFERASE 23 U/L (12-78); ALBUMIN 1.2 g/dL (3.4-5.0); ALKALINE PHOSPHATASE 74 U/L (45-117); ANION GAP 6 mmol/L (5-15); BILIRUBIN,TOTAL 0.2 mg/dL (0.2-1.0); CALCIUM 8.2 mg/dL (8.5-10.1); CREATININE 0.61 mg/dL (0.7-1.3); TOTAL PROTEIN 6.4 g/dL (6.4-8.2)
[2018-07-30] MEDS: POTASSIUM CHLORIDE 10 MEQ in D5%-0.45% NACL 1,000 ML IV SCH ×2 (05:08→17:30)
[2018-07-30 07:48] VITALS: BP 114/69
[2018-07-30] MEDS: CEFTRIAXONE PMX 2GM/50ML 50 ML IV SCH (11:07)
[2018-07-30] MEDS: FAMOTIDINE 20 MG TABLET PO SCH ×2 (11:07→21:11)
[2018-07-30 14:40] VITALS: BP 117/68
[2018-07-30] MEDS: LURASIDONE 20 MG TABLET PO SCH (17:30)
[2018-07-30 19:41] VITALS: BP 103/57
[2018-07-31] MEDS: HEPARIN 5,000 UNITS/ML, 1ML SQ SCH ×3 (01:43→18:31)
[2018-07-31 03:22] VITALS: BP 118/70
[2018-07-31] MEDS: POTASSIUM CHLORIDE 10 MEQ in D5%-0.45% NACL 1,000 ML IV SCH ×2 (05:35→18:28)
[2018-07-31 06:17] LABS: BASOPHILS # (AUTO) 0.09 x10^3/uL (0-0.1); BASOPHILS % (AUTO) 1 % (0-1); EOSINOPHILS # (AUTO) 0.08 x10^3/uL (0-0.4); EOSINOPHILS % (AUTO) 1 % (1-7); LYMPHOCYTES # (AUTO) 1.58 x10^3/uL (1-3.4); LYMPHOCYTES % (AUTO) 14 % (22-44); MD NO; MEAN CORPUSCULAR HEMOGLOBIN 30.1 pg (27.5-34.5); MEAN CORPUSCULAR HGB CONC 33.5 g/dL (33.2-36.2); MEAN CORPUSCULAR VOLUME 89.9 fL (81-97); MONOCYTES # (AUTO) 1.05 x10^3/uL (0.2-0.8); MONOCYTES % (AUTO) 9 % (2-9); NEUTROPHILS # (AUTO) 8.68 x10^3/uL (1.8-6.8); NEUTROPHILS % (AUTO) 76 % (42-75); PLATELET COUNT 630 x10^3/uL (130-400); RED CELL DISTRIBUTION WIDTH 15.6 % (9.4-14.8)
[2018-07-31 06:26] LABS: ALANINE AMINOTRANSFERASE 22 U/L (12-78); ALBUMIN 1.4 g/dL (3.4-5.0); ANION GAP 6 mmol/L (5-15); CALCIUM 8.1 mg/dL (8.5-10.1); CHLORIDE 102 mmol/L (98-107); CREATININE 0.62 mg/dL (0.7-1.3)
[2018-07-31 06:28] LABS: ALKALINE PHOSPHATASE 81 U/L (45-117); BILIRUBIN,TOTAL 0.2 mg/dL (0.2-1.0); TOTAL PROTEIN 7.2 g/dL (6.4-8.2)
[2018-07-31 07:23] VITALS: BP 120/74
[2018-07-31] MEDS: FAMOTIDINE 20 MG TABLET PO SCH ×2 (09:23→21:33)
[2018-07-31] MEDS: CEFTRIAXONE PMX 2GM/50ML 50 ML IV SCH (10:23)
[2018-07-31] MEDS: ACETAMINOPHEN 325 MG TABLET PO PRN (10:24)
[2018-07-31] MEDS: morphine SULFATE 10 MG/ML, 1ML IVPush PRN (11:34)
[2018-07-31 12:35] VITALS: BP 94/57
[2018-07-31] MEDS: LURASIDONE 20 MG TABLET PO SCH (17:05)
[2018-07-31 21:29] VITALS: BP 112/68
[2018-08-01] MEDS: HEPARIN 5,000 UNITS/ML, 1ML SQ SCH ×2 (02:59→10:18)
[2018-08-01 03:59] VITALS: BP 120/74
[2018-08-01] MEDS: POTASSIUM CHLORIDE 10 MEQ in D5%-0.45% NACL 1,000 ML IV SCH (05:33)
[2018-08-01] MEDS: FAMOTIDINE 20 MG TABLET PO SCH (07:43)
[2018-08-01 08:35] VITALS: BP 124/68
[2018-08-01 09:29] LABS: BASOPHILS % (AUTO) 1 % (0-1); EOSINOPHILS # (AUTO) 0.02 x10^3/uL (0-0.4); EOSINOPHILS % (AUTO) 0 % (1-7); LYMPHOCYTES # (AUTO) 1.68 x10^3/uL (1-3.4); LYMPHOCYTES % (AUTO) 16 % (22-44); MD NO; MEAN CORPUSCULAR HEMOGLOBIN 28.9 pg (27.5-34.5); MEAN CORPUSCULAR HGB CONC 32.1 g/dL (33.2-36.2); MEAN PLATELET VOLUME 6.6 fL (7.4-10.4); MONOCYTES # (AUTO) 0.96 x10^3/uL (0.2-0.8); MONOCYTES % (AUTO) 9 % (2-9); NEUTROPHILS # (AUTO) 7.89 x10^3/uL (1.8-6.8); NEUTROPHILS % (AUTO) 74 % (42-75); PLATELET COUNT 677 x10^3/uL (130-400); RED BLOOD COUNT 2.78 x10^6/uL (4.38-5.82); RED CELL DISTRIBUTION WIDTH 15.5 % (9.4-14.8)
[2018-08-01 09:48] LABS: ALBUMIN 1.6 g/dL (3.4-5.0); ANION GAP 7 mmol/L (5-15); CALCIUM 8.9 mg/dL (8.5-10.1); CHLORIDE 101 mmol/L (98-107)
[2018-08-01 09:51] LABS: ALANINE AMINOTRANSFERASE 22 U/L (12-78); ALKALINE PHOSPHATASE 89 U/L (45-117); BILIRUBIN,TOTAL 0.2 mg/dL (0.2-1.0); CREATININE 0.81 mg/dL (0.7-1.3); TOTAL PROTEIN 7.5 g/dL (6.4-8.2)
[2018-08-01] MEDS: CEFTRIAXONE PMX 2GM/50ML 50 ML IV SCH (10:18)
[2018-08-01] MEDS: ACETAMINOPHEN 325 MG TABLET PO PRN (10:44)
[2018-08-01] MEDS ORDERED: ENOXAPARIN 40 MG/0.4 ML SQ SCH (11:00)
[2018-08-01 12:26] VITALS: BP 116/61
[2018-08-01] MEDS: LURASIDONE 20 MG TABLET PO SCH (17:39)
[2018-08-01 20:50] VITALS: BP 115/71
[2018-08-02] MEDS: ACETAMINOPHEN 325 MG TABLET PO PRN ×2 (01:06→06:24)
[2018-08-02 01:15] VITALS: BP 127/78
[2018-08-02 06:28] LABS: ALANINE AMINOTRANSFERASE 23 U/L (12-78); ALBUMIN 1.4 g/dL (3.4-5.0); ANION GAP 5 mmol/L (5-15); CALCIUM 8.4 mg/dL (8.5-10.1); CHLORIDE 105 mmol/L (98-107); CREATININE 0.66 mg/dL (0.7-1.3)
[2018-08-02 06:35] LABS: ALKALINE PHOSPHATASE 90 U/L (45-117); BASOPHILS # (AUTO) 0.22 x10^3/uL (0-0.1); BASOPHILS % (AUTO) 3 % (0-1); BILIRUBIN,TOTAL 0.3 mg/dL (0.2-1.0); EOSINOPHILS # (AUTO) 0.15 x10^3/uL (0-0.4); EOSINOPHILS % (AUTO) 2 % (1-7); LYMPHOCYTES # (AUTO) 1.65 x10^3/uL (1-3.4); LYMPHOCYTES % (AUTO) 19 % (22-44); MD NO; MEAN CORPUSCULAR HEMOGLOBIN 28.9 pg (27.5-34.5); MEAN CORPUSCULAR HGB CONC 32.6 g/dL (33.2-36.2); MEAN CORPUSCULAR VOLUME 88.7 fL (81-97); MEAN PLATELET VOLUME 6.8 fL (7.4-10.4); MONOCYTES # (AUTO) 0.96 x10^3/uL (0.2-0.8); MONOCYTES % (AUTO) 11 % (2-9); NEUTROPHILS # (AUTO) 5.84 x10^3/uL (1.8-6.8); NEUTROPHILS % (AUTO) 66 % (42-75); PLATELET COUNT 676 x10^3/uL (130-400); RED BLOOD COUNT 2.63 x10^6/uL (4.38-5.82); RED CELL DISTRIBUTION WIDTH 14.9 % (9.4-14.8); TOTAL PROTEIN 7.4 g/dL (6.4-8.2)
[2018-08-02 06:55] LABS: SEDIMENTATION RATE > 120 mm/hr (0-10)
[2018-08-02 06:57] LABS: HCT (SEDRATE) 23.3 % (39.2-51.8)
[2018-08-02 07:40] VITALS: BP 126/70
[2018-08-02] MEDS: morphine SULFATE 10 MG/ML, 1ML IVPush PRN (09:43)
[2018-08-02] MEDS: CEFTRIAXONE PMX 2GM/50ML 50 ML IV SCH (09:43)
[2018-08-02 12:47] VITALS: BP 124/75
[2018-08-02] MEDS ORDERED: ACET325T14 PO (13:45)
[2018-08-02] MEDS ORDERED: CEFT2FRO2 IV (13:45)
[2018-08-02] MEDS ORDERED: LURA20TA PO (13:45)
[2018-08-02] MEDS ORDERED: ONDA4TAB13 PO (13:45)
[2018-08-02] MEDS: LURASIDONE 20 MG TABLET PO SCH (15:40)
== END 2018-08-02 16:39 | DRG 871 ==
LOC: MERGE 06:54 → ED 06:54 → EDBD 06:54 → EDIP 08:26 → 4EST 10:48
PROVIDERS: ADMIT Internal Medicine; ATTEND Internal Medicine
PROC: 0W983ZZ Drainage of Chest Wall, Percutaneous Approach (ICD-10-PCS; 2018-07-18)
PROC: 0W9930Z Drainage of Right Pleural Cavity with Drainage Device, Percutaneous Approach (ICD-10-PCS; 2018-07-18)
PROC: 0P9 Upper Bones, Drainage (ICD-10-PCS; 2018-07-18)
PROC: 02HV33Z Insertion of Infusion Device into Superior Vena Cava, Percutaneous Approach (ICD-10-PCS; principal; 2018-07-23)
PROC: B5181ZA Fluoroscopy of Superior Vena Cava using Low Osmolar Contrast, Guidance (ICD-10-PCS; 2018-07-23)
PROC: B548ZZA Ultrasonography of Superior Vena Cava, Guidance (ICD-10-PCS; 2018-07-23)
DX: A40.9 Streptococcal sepsis, unspecified (principal); E43 Unspecified severe protein-calorie malnutrition; J13 Pneumonia due to Streptococcus pneumoniae; J86.9 Pyothorax without fistula; J96.01 Acute respiratory failure with hypoxia; B37.0 Candidal stomatitis; Z68.1 Body mass index [BMI] 19.9 or less, adult; E87.1 Hypo-osmolality and hyponatremia; J90 Pleural effusion, not elsewhere classified; L02.11 Cutaneous abscess of neck; L02.213 Cutaneous abscess of chest wall; M00.9 Pyogenic arthritis, unspecified; M46.22 Osteomyelitis of vertebra, cervical region; B96.3 Hemophilus influenzae [H. influenzae] as the cause of diseases classified elsewhere; J45.909 Unspecified asthma, uncomplicated; D69.6 Thrombocytopenia, unspecified; F20.9 Schizophrenia, unspecified; I25.10 Atherosclerotic heart disease of native coronary artery without angina pectoris; I25.2 Old myocardial infarction; Z86.73 Personal history of transient ischemic attack (TIA), and cerebral infarction without residual deficits; Z59.0 Homelessness; Z23 Encounter for immunization
CPT/HCPCS: 10030; 36415; 75989; 87400; 87806; J7620; 0399T; 36573; 71045; 71260; 80048; 80053; 80202; 82040; 83605; 83735; 83880; 84100; 84443; 84484; 85025; 85651; 86140; 86361; 86480; 86580; 86705; 86706; 86708; 86803; 87040; 87070; 87075; 87077; 87181; 87205; 87340; 90656; 93005; 93306; 94640; 99156; 99157; C1729; G0378; J0696; J1644; J1650; J2250; J2543; J2704; J3010; J3370; J3480; Q9966; Q9967; C1751; C1769; G0009; G0475; J0330; J2270; J2310; J2370; J7030; J7050; J7512

== ENCOUNTER 2018-11-30 18:52 | Emergency (ER) | payer MEDICAID, OTHER ==
[~2018-11-30] VITALS: Ht 162.6 cm; Wt 52.0 kg
[~2018-11-30 18:52] MED LIST: ACET325T14 PO; CEFT2FRO2 IV; LURA20TA PO; ONDA4TAB13 PO
[2018-11-30 19:31] LABS: BASOPHILS # (AUTO) 0.05 x10^3/uL (0-0.1); BASOPHILS % (AUTO) 1 % (0-1); EOSINOPHILS # (AUTO) 0.35 x10^3/uL (0-0.4); EOSINOPHILS % (AUTO) 5 % (1-7); LYMPHOCYTES % (AUTO) 24 % (22-44); MD NO; MEAN CORPUSCULAR HEMOGLOBIN 28.4 pg (27.5-34.5); MEAN CORPUSCULAR HGB CONC 32.4 g/dL (33.2-36.2); MEAN CORPUSCULAR VOLUME 87.8 fL (81-97); MEAN PLATELET VOLUME 7.4 fL (7.4-10.4); MONOCYTES # (AUTO) 0.77 x10^3/uL (0.2-0.8); MONOCYTES % (AUTO) 11 % (2-9); NEUTROPHILS % (AUTO) 60 % (42-75); PLATELET COUNT 382 x10^3/uL (130-400); RED BLOOD COUNT 4.26 x10^6/uL (4.38-5.82); RED CELL DISTRIBUTION WIDTH 19.6 % (9.4-14.8)
[2018-11-30 19:37] LABS: ALANINE AMINOTRANSFERASE 20 U/L (12-78); ALBUMIN 3.1 g/dL (3.4-5.0); ANION GAP 8 mmol/L (5-15); CALCIUM 9.2 mg/dL (8.5-10.1); CHLORIDE 109 mmol/L (98-107); CREATININE 0.93 mg/dL (0.7-1.3)
[2018-11-30 19:40] LABS: ALKALINE PHOSPHATASE 86 U/L (45-117); BILIRUBIN,TOTAL 0.1 mg/dL (0.2-1.0); TOTAL PROTEIN 7.8 g/dL (6.4-8.2)
--- NOTE | 2018-11-30 20:17 | NUR ---
ASSUMED CARE OF PT AT THIS TIME. PT STEADY UPON AMBULATION TO RESTROOM AND BACK TO ROOM. PT AGGRESSIVE WITH RN, YELLING ANSWERS TO QUESTIONS AT HER AND GOING OFF ON TANGENTS SUCH "I HAD TO LIVE IN THE HOMELESS PRISON FOR THREE MONTHS BECAUSE YOU PEOPLE MESSED UP ON MY BIRTHDATE." AND "YOU KNOW THE ONLY DIFFERENCE BETWEEN [place] AND [place]? THIRTY MINUTES. BUT I CAN WALK TO [place]. YOU KNOW [facility] H[facility]. YOU KNOW HOW MANY THIS PLACE HAS? ONE. BECAUSE YOU MESSED UP ON MY BIRHTDATE. I WAS BORN IN DECEMBER. BUT YOU GUYS SAID IT WAS NOVEMBER." PT ANSWERS ALL ORIENTATION QUESTIONS APPROPRIATELY BUT SEEMS TANGENTIAL IN THOUGHT. SKIN PWD. RESP EVEN AND UNLABORED. URINE SAMPLE WAS OBTAINED AND SENT TO LAB. CHRIS CAZARES AT BEDSIDE FOR EVAL AT THIS TIME.
--- NOTE | 2018-11-30 20:23 | NUR ---
PT REFUSES TO PROVIDE STOOL SAMPLE AT THIS TIME STATING "I CAN'T POOP. THAT'S DONE".
[2018-11-30] MEDS ORDERED: ONDANSETRON ODT 4 MG ONE (20:33)
[2018-11-30 20:37] LABS: MICROSCOPIC NOT IND
[2018-11-30 20:43] LABS: CULTURE INDICATED? NO
[2018-11-30] MEDS ORDERED: ONDANSETRON ODT 4 MG PO ONE (21:00)
--- NOTE | 2018-11-30 21:23 | NUR ---
PT CURRENTLY DOZING ON [place]. NAD NOTED. SKIN PWD. RESP EVEN AND UNLABORED. PT ON CONT BP AND O2 MONITORS. PT AWARE WE ARE WAITING FOR LAB/IMAGING RESULTS. CALL LIGHT WITHIN REACH. WILL CONT TO MONITOR PT.
[2018-11-30 21:37] VITALS: BP 112/80
== END 2018-11-30 21:39 | disposition home or self-care (01) ==
LOC: ED 21:33
DX: A09 Infectious gastroenteritis and colitis, unspecified (principal); J45.909 Unspecified asthma, uncomplicated; Z72.9 Problem related to lifestyle, unspecified
CPT/HCPCS: 36415; 74021; 80053; 81003; 83690; 85025; 99284; Q0162

== ENCOUNTER 2020-03-05 11:19 | Emergency (ER) | payer SELFPAY ==
[~2020-03-05] VITALS: Ht 172.7 cm; Wt 58.1 kg
[2020-03-05 11:38] VITALS: BP 114/76
[2020-03-05] MEDS ORDERED: ACETAMINOPHEN 325 MG TABLET ONE (13:33)
--- NOTE | 2020-03-05 13:36 | NUR ---
PT REQUEST PAIN MEDS. SEE MAR FOR INTERVENTIONS. ROAD TEST OF PATIENT WAS SUCCESSFUL. PT AMBULATED WITH A STEADY GAIT. AFTER ROAD TEST PT STATES "I DONT WANT TO GO. CAN I PLEASE STAY HERE? I CANT WALK. I NEED A WHEELCHAIR"
--- NOTE | 2020-03-05 13:52 | NUR ---
PT AMBULATED WITH STEADY GAIT. PT GIVEN CAB VOUCHER.
[2020-03-05] MEDS ORDERED: ACETAMINOPHEN 325 MG TABLET PO ONE (14:00)
== END 2020-03-05 13:54 | disposition home or self-care (01) ==
LOC: ED 12:53
DX: G31.2 Degeneration of nervous system due to alcohol (principal); F17.200 Nicotine dependence, unspecified, uncomplicated; I25.2 Old myocardial infarction; J45.909 Unspecified asthma, uncomplicated; Z86.73 Personal history of transient ischemic attack (TIA), and cerebral infarction without residual deficits
CPT/HCPCS: 99283

== ENCOUNTER 2020-07-19 23:15 | Emergency (ER) | payer MEDICARE ==
[~2020-07-19] VITALS: Ht 172.7 cm; Wt 61.3 kg
[~2020-07-19 23:15] MED LIST changes: +ALBU18HF INH; +MULT-449 PO
--- NOTE | 2020-07-19 23:30 | NUR ---
LATE ENTRY D/T PT CARE: PT BIB [facility] FROM [facility] WITH A CHIEF C/O HERNIA SUTURES POPPED. SCAR APPEARS TO BE WELL HEALED, NO OPENINGS OR RECENT SURGICAL ALVARADO NOTED. LOWER LEFT QUADRANT/GROIN AREA ONE SMALL HERNIA NOTED. PT REPORTS SCROTUM PAIN. PT REQUESTING COFFEE AND SANDWICH UPON ARRIVAL. JENNY SMITH AT FOR EVAL AND POC. PT PLACED ON SPO2/BP MONITORING. PROVIDED WARM BLANKET FOR COMFORT, BED IN LOWEST, RAILS ENGAGED, CALL LIGHT ON LAP. WCTM.
--- NOTE | 2020-07-20 01:06 | NUR ---
pt resting on gurney, eyes closed, nad, even and unlabored respirations, bed in lowest, call light on lap, wctm.
[2020-07-20 01:37] VITALS: BP 112/60
--- NOTE | 2020-07-20 01:38 | NUR ---
pt resting on gurney, nad, eyes closed, even and unlabored respirations, wctm. waiting for us
--- NOTE | 2020-07-20 01:51 | NUR ---
Patient given discharge instructions and they have confirmed that they understand the instructions. Patient ambulatory with steady gait. NAD, DENIES ADDITIONAL QUESTIONS, PROVIDED TAXI VOUCHER AND CRACKERS FOR COMFORT, NO PERSONAL BELONGINGS LEFT IN ROOM AFTER DC.
== END 2020-07-20 02:15 | disposition home or self-care (01) ==
LOC: ED 07-20 00:01
DX: N43.3 Hydrocele, unspecified (principal); R10.9 Unspecified abdominal pain; R05 Cough; I25.2 Old myocardial infarction; J45.909 Unspecified asthma, uncomplicated; Z86.73 Personal history of transient ischemic attack (TIA), and cerebral infarction without residual deficits; Z87.891 Personal history of nicotine dependence
CPT/HCPCS: 71045; 76870; 99284

== ENCOUNTER 2020-12-12 18:14 | Emergency (ER) | payer MEDICARE ==
[~2020-12-12] VITALS: Ht 172.7 cm; Wt 60.0 kg
--- NOTE | 2020-12-12 18:29 | NUR ---
ice pack applied to ankle while awaiting an md to assess. pt is resting comfortably on an e.r. gurney
[2020-12-12] MEDS ORDERED: IBUPROFEN 600 MG TABLET PO ONE (19:00)
[2020-12-12] MEDS ORDERED: IBUPROFEN 600 MG TABLET ONE (19:14)
[2020-12-12 19:16] VITALS: BP 127/60
--- NOTE | 2020-12-12 19:16 | NUR ---
PT MEDICATED PER MAR VSS
== END 2020-12-12 20:03 | disposition home or self-care (01) ==
LOC: ED 18:45
DX: S93.422A Sprain of deltoid ligament of left ankle, initial encounter (principal); J45.909 Unspecified asthma, uncomplicated; I25.2 Old myocardial infarction; Z86.73 Personal history of transient ischemic attack (TIA), and cerebral infarction without residual deficits; Z90.89 Acquired absence of other organs; X50.0XXA Overexertion from strenuous movement or load, initial encounter; Y93.89 Activity, other specified; Y92.410 Unspecified street and highway as the place of occurrence of the external cause; Y99.8 Other external cause status
CPT/HCPCS: 99283

== ENCOUNTER 2020-12-16 11:13 | Emergency (ER) | payer SELFPAY ==
[~2020-12-16] VITALS: Ht 172.7 cm; Wt 59.1 kg
--- NOTE | 2020-12-16 11:15 | NUR ---
KARSON CUEVAS FROM [facility] FOR "ASTHMA ATTACK" X3 DAYS. REPORTS HX ASTHMA SINCE CHILDHOOD. PT STATES HE RAN OUT OF HIS ALBUTEROL INHALER 3 DAYS AGO. PT HAS SOME UPPER AIRWAY WHEEZING/INTERMITTENT COUGH BUT NO RESPIRATORY DISTRESS. NO INTERVENTIONS DONE BY EMS. ARRIVES TO ED A&OX4, AMBULATORY, DENIES ETOH, SMOKING OR DRUG USE. PT IMMEDIATELY REQUESTING LUNCH & SNACKS.
--- NOTE | 2020-12-16 11:16 | NUR ---
ERP AT NOW.
[2020-12-16] MEDS ORDERED: ALBUTEROL/IPRATROPIUM 2.5MG/0.5MG, 3 ML ONE ×2 (11:26)
[2020-12-16] MEDS ORDERED: ALBUTEROL/IPRATROPIUM 2.5MG/0.5MG, 3 ML NPPB ONE (11:30)
--- NOTE | 2020-12-16 11:48 | NUR ---
PT DONE WITH SPENCER PHILLIPS, STATES, "I'M CLEAR A [place] NOW!" REQUESTING MORE SNACKS.
[2020-12-16 12:00] VITALS: BP 96/43
--- NOTE | 2020-12-16 12:17 | NUR ---
MORE SNACKS PROVIDED TO PT. PT AMBULATED TO BR INDEPENDENTLY. D/C INSTRUCTIONS, MEDS & F/U APPT RV'WD WITH PT. RX GIVEN X2. ASSISTED PT OUT OF ED VIA WC; WILL PROVIDE INFO FOR [facility] TRANSPORT BACK TO [facility]. Addendum: 12/16/20 at 1236 by HBENSON CAB VOUCHER PROVIDED TO PT FOR TRANSPORT BACK TO [facility].
== END 2020-12-16 12:16 | disposition home or self-care (01) ==
LOC: ED 11:58
DX: J45.31 Mild persistent asthma with (acute) exacerbation (principal); I25.2 Old myocardial infarction; Z86.73 Personal history of transient ischemic attack (TIA), and cerebral infarction without residual deficits; Z87.891 Personal history of nicotine dependence
CPT/HCPCS: 93005; 94640